=== PATIENT | female | born 1985 | race Hispanic/Latino ===

== ENCOUNTER 2018-01-27 10:06 | Inpatient (IN) | payer BC ==
[~2018-01-27] VITALS: Ht 162.6 cm; Wt 85.7 kg
[2018-01-27] MEDS ORDERED: MORPHINE SULFATE 4 MG/ML SYR IV STA (10:25)
[2018-01-27] MEDS ORDERED: SODIUM CHLORIDE 0.9% 1000ML 1,000 ML IV STA ×3 (10:25→12:27)
[2018-01-27 11:03] LABS: CLARITY,URINE SL CLOUDY (CLEAR); COLOR,URINE YELLOW (YELLOW); LEUKOCYTE ESTERASE ,URINE TRACE (NEGATIVE); NITRITE,URINE POSITIVE (NEGATIVE); PROTEIN,URINE DIPSTICK 2+ (NEGATIVE)
[2018-01-27 11:04] LABS: BILIRUBIN,URINE 2+ (NEGATIVE); KETONES,URINE 3+ (NEGATIVE); URINE UROBILINOGEN 1 mg/dL (0.2 - 1)
[2018-01-27] MEDS ORDERED: PIPER-TAZ 3.375 GM 50 ML IV STA (11:07)
[2018-01-27] MEDS ORDERED: MORPHINE SULFATE 2 MG/ML SYR ONE (11:12)
[2018-01-27] MEDS ORDERED: ACETAMINOPHEN 325 MG TAB PO ONE (11:15)
[2018-01-27] MEDS ORDERED: ONDANSETRON HCL 4 MG ORAL DISINTEGRATING TAB PO ONE (11:15)
[2018-01-27 11:18] LABS: BACTERIA,URINE FEW /HPF; EPITHELIAL CELLS,URINE RARE /LPF
[2018-01-27 11:34] LABS: BASOPHILS # (AUTO) 0.1 (0.0-0.1); BASOPHILS % 0.3 % (0.0-1.0); HEMATOCRIT 38.9 % (34.2-44.1); HEMOGLOBIN 13.8 g/dL (12.0-16.0); LYMPHOCYTES # (AUTO) 1.5 (1.0-3.2); LYMPHOCYTES % 6.3 % (18.0-39.1); MEAN CORPUSCULAR HEMOGLOBIN 29.4 pg (28-32); MEAN CORPUSCULAR HGB CONC 35.5 g/dL (31-35); MEAN CORPUSCULAR VOLUME 82.8 fL (81-99); MONOCYTES # (AUTO) 1.3 (0.2-0.8); MONOCYTES % 5.8 % (4.4-11.3); NEUTROPHILS # (AUTO) 20.4 (2.1-6.9); NEUTROPHILS % 87.2 % (38.7-80.0); PLATELET COUNT 265 x10e3/uL (140-360); RED CELL DISTRIBUTION WIDTH 11.8 % (11.7-14.4)
[2018-01-27 11:57] LABS: ALANINE AMINOTRANSFERASE 25 IU/L (0-55); ALBUMIN 3.5 g/dL (3.5-5.0); ALBUMIN/GLOBULIN RATIO 0.7 (0.8-2.0); ALKALINE PHOSPHATASE 114 IU/L (40-150); AMYLASE 33 U/L (25-125); BLOOD UREA NITROGEN 7 mg/dL (7-26); BUN/CREATININE RATIO 9 (6-25); CALCIUM 9.7 mg/dL (8.4-10.2); CARBON DIOXIDE 19 mmol/L (22-29); CHLORIDE 104 mmol/L (98-107); CREATININE, SERUM 0.75 mg/dL (0.57-1.11); EST GLOMERULAR FILTRATION RATE > 60 ML/MIN (60-); GLUCOSE 124 mg/dL (74-118); LIPASE 18 U/L (8-78); SODIUM 136 mmol/L (136-145)
[2018-01-27 12:05] LABS: LYMPHOCYTES % (MANUAL) 4 % (19-48); MONOCYTES % (MANUAL) 4 % (3.4-9.0); NEUTROPHILS % (MANUAL) 92 % (40-74); PLATELET ESTIMATE ADEQUATE; PLATELET MORPHOLOGY COMMENT NORMAL; RBC MORPHOLOGY COMMENT NORMAL
[2018-01-27] MEDS ORDERED: PROMETHAZINE HCL (IM) 25 MG/ML VIAL IM PRN (12:15)
[2018-01-27] MEDS ORDERED: MORPHINE SULFATE 2 MG/ML SYR IV PRN (12:15)
[2018-01-27 13:30] VITALS: BP 104/67
[2018-01-27 13:51] VITALS: BP 104/67
[2018-01-27] MEDS ORDERED: PIPER-TAZ 3.375 GM 50 ML IV SCH (14:00)
--- NOTE | 2018-01-27 14:13 | Diagnostic Imaging Report ---
EXAM: CT Abdomen and Pelvis WITH contrast INDICATION: Abdominal pain and tenderness, evaluate for pyelonephritis COMPARISON: None. TECHNIQUE: Abdomen and pelvis were scanned utilizing a multidetector helical scanner from the lung base to the pubic symphysis after administration of IV contrast. Coronal and sagittal reformations were obtained. Routine protocol was performed. Scan was performed when during portal venous phase. IV CONTRAST: 100 mL of Isovue 370 ORAL CONTRAST: Water RADIATION DOSE: Total DLP: 621 mGy*cm Estimated effective dose: (DLP x 0.015 x size factor) mSv COMPLICATIONS: None FINDINGS: LINES and TUBES: None. LOWER THORAX: Unremarkable HEPATOBILIARY: No focal hepatic lesions. No biliary ductal dilation. GALLBLADDER: No radio-opaque stones or sludge. No wall thickening. SPLEEN: No splenomegaly. PANCREAS: No focal masses or ductal dilatation. ADRENALS: No adrenal nodules KIDNEYS/URETERS: Diffuse areas of hypoperfusion throughout the right kidney with associated mild perinephric fat stranding. Double right calyceal system. The upper pole ureteral moiety is diffusely dilated and ends ectopically in the urinary bladder within the posterior wall with associated ureterocele. The lower ureter is nomal in caliber and ends in the expected region of the urinary bladder. No cystic or solid mass lesions. No stones. GI TRACT: No abnormal distention, wall thickening, or evidence of bowel obstruction. Appendix is normal. PELVIC ORGANS/BLADDER: Unremarkable. LYMPH NODES: No lymphadenopathy. VESSELS: Unremarkable. Incidental 3 left renal arteries. The 2 accessory renal arteries supply the occluded inferior pole of the left kidney. PERITONEUM / RETROPERITONEUM: No free air or fluid. BONES: Unremarkable. SOFT TISSUES: Unremarkable. IMPRESSION: 1. Right pyelonephritis. 2. 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 Inferior orthotopic right ureter appears unremarkable without calcified stones. Signed by: Dr. Terrie Ascencio M.D. on 01/27/2018 2:10 PM
[2018-01-27] MEDS: SODIUM CHLORIDE 0.9% 1000ML 1,000 ML IV SCH ×2 (14:15→20:34)
[2018-01-27] MEDS: ACETAMINOPHEN 325 MG TAB PO PRN ×2 (15:38→20:25)
[2018-01-27 16:10] VITALS: BP_SYST 123
[2018-01-27] MEDS ORDERED: SODIUM CHLORIDE 0.9% 50ML 50 ML ONE (17:20)
[2018-01-27] MEDS ORDERED: IOPAMIDOL 370 MG/ML 200 ML INFUS..BTL INJ ONE (17:20)
[2018-01-27 18:04] VITALS: BP 123/67
[2018-01-27 20:00] VITALS: BP 141/71
[2018-01-27] MEDS: PIPER-TAZ 3.375 GM 50 ML IV SCH (20:34)
[2018-01-28] VITALS (7 sets, daily range): BP systolic 108–136; BP diastolic 60–79
[2018-01-28] MEDS: PIPER-TAZ 3.375 GM 50 ML IV SCH ×3 (04:30→20:15)
[2018-01-28] MEDS: SODIUM CHLORIDE 0.9% 1000ML 1,000 ML IV SCH ×3 (04:30→20:15)
[2018-01-28 06:23] LABS: BASOPHILS # (AUTO) 0.1 (0.0-0.1); BASOPHILS % 0.3 % (0.0-1.0); HEMATOCRIT 34.3 % (34.2-44.1); LYMPHOCYTES # (AUTO) 2.5 (1.0-3.2); MEAN CORPUSCULAR HEMOGLOBIN 29.6 pg (28-32); MEAN CORPUSCULAR VOLUME 84.5 fL (81-99); MONOCYTES # (AUTO) 1.7 (0.2-0.8); MONOCYTES % 9.1 % (4.4-11.3); NEUTROPHILS # (AUTO) 13.7 (2.1-6.9); NEUTROPHILS % 75.6 % (38.7-80.0); PLATELET COUNT 238 x10e3/uL (140-360); RED BLOOD COUNT 4.06 x10e6/uL (3.6-5.1); RED CELL DISTRIBUTION WIDTH 11.9 % (11.7-14.4)
[2018-01-28 06:44] LABS: ALANINE AMINOTRANSFERASE 22 IU/L (0-55); ALBUMIN 2.8 g/dL (3.5-5.0); ALBUMIN/GLOBULIN RATIO 0.7 (0.8-2.0); ALKALINE PHOSPHATASE 100 IU/L (40-150); ANION GAP 11.3 mmol/L (8-16); BLOOD UREA NITROGEN 6 mg/dL (7-26); BUN/CREATININE RATIO 9 (6-25); CALCIUM 8.8 mg/dL (8.4-10.2); CARBON DIOXIDE 19 mmol/L (22-29); CHLORIDE 109 mmol/L (98-107); CREATININE, SERUM 0.68 mg/dL (0.57-1.11); EST GLOMERULAR FILTRATION RATE > 60 ML/MIN (60-); GLUCOSE 137 mg/dL (74-118); POTASSIUM 3.3 mmol/L (3.5-5.1); SODIUM 136 mmol/L (136-145)
[2018-01-28] MEDS: ACETAMINOPHEN 325 MG TAB PO PRN ×3 (08:57→20:13)
[2018-01-28] MEDS ORDERED: POTASSIUM CHLORIDE 10 MEQ TABCR PO ONE (10:15)
[2018-01-28] MEDS ORDERED: ONDANSETRON HCL INJ 2 MG/ML VIAL IV PRN (10:15)
[2018-01-28] MEDS ORDERED: KETOROLAC TROMETHAMINE 30 MG/ML VIAL IV PRN (10:15)
[2018-01-28] MEDS ORDERED: POTASSIUM CHLORIDE 20 MEQ TAB CR PO ONE (10:15)
[2018-01-28] MEDS ORDERED: ONDANSETRON HCL 4 MG ORAL DISINTEGRATING TAB PO PRN (10:15)
--- NOTE | 2018-01-28 21:52 | Consultation ---
DATE OF CONSULTATION: January 28, 2018 UROLOGY CONSULTATION REASON FOR CONSULTATION: Pyelonephritis. HISTORY OF PRESENT ILLNESS: Sasha Ortiz is a 32-year-old woman who had fever, nausea, and vomiting. The patient had left-sided flank pains and reported to the emergency room where she underwent a contrast only CT of the abdomen and pelvis and was found to have urological findings and was subsequently admitted. Patient reports she had a 101 fever at the urgent care prior to coming to this emergency room. In the emergency room yesterday, the patient had 103.2 fever. The patient had laboratory studies done and was subsequently admitted. The patient reports having stress-type urinary incontinence, but never having urge-type urinary incontinence. Patient denies previous hematuria, dysuria, urinary tract infections, or urolithiasis. PAST MEDICAL AND SURGICAL HISTORY: None. ALLERGIES: NONE KNOWN. CURRENT MEDICATIONS: Please refer to the MAR. Patient is normally on no medications. FAMILY HISTORY: Significant for heart disease and diabetes mellitus in the patient's father. SOCIAL HISTORY: The patient denies smoking, ethanol, and drug use. 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 REVIEW OF SYSTEMS: As consistent with above history of present illness and past medical history, otherwise negative for all other systems. PHYSICAL EXAMINATION: GENERAL: Healthy-appearing 32-year-old woman, lying in bed, in no apparent distress. VITAL SIGNS: Her temperature maximum in the emergency room yesterday was 103.2 and her vital signs have been stable. ABDOMEN: Soft, nondistended. It is tender in the left flank with left-sided costovertebral angle tenderness. Kidneys are not palpable without hepatosplenomegaly. No obvious evidence of hernia. For the remaining physical examination and review of systems, please refer to the admission history and physical on chart as well as the ER T-sheet. LABORATORY STUDIES: White blood cell count yesterday was 23,300, today it is 18,160; hemoglobin is normal at 12; platelets are normal at 238,000. Patient's potassium is slightly low at 3.3, creatinine is normal at 0.68. Urinalysis significant for nitrite-positive urine with 6 to 10 RBCs, 6 to 10 WBCs, rare epithelial cells, and few bacteria. Urine test is negative. CT scan of the abdomen and pelvis was reviewed. It revealed hypoperfusion areas of the right kidney consistent with right pyelonephritis. There is a duplicated collecting system on the left with the upper pole moiety dilated all the way down to the bladder where there appears to be a ureterocele. Of note is that there are 3 left renal arteries and the 2 accessory renal arteries supply the occluded inferior pole of the left kidney. ASSESSMENT: 1. Fevers. 2. Nausea, vomiting. 3. Right renal colic. 4. Right pyelonephritis. 5. Stress-type urinary incontinence. 6. Complicated urinary tract infection. 7. Right ureteral duplication. 8. Right hydroureteronephrosis. 9. Right ureterocele. 10. Hypokalemia. 11. Leukocytosis. PLAN: 1. I will order catheterize urine culture and sensitivity. 2. The lab needs to completely workup the urine culture and sensitivity that is currently pending that they are listing as contaminant due to the fact that it seemed to be a good clean catch urinary specimen. 3. I at length discussed with the patient and family at the bedside the options. The plan will be to attempt to cool the patient's pyelonephritis off prior to going to the operating room for cystoscopy and retrograde pyelograms. At that point in time, incision of the ureterocele may be performed. This could potentially result in reflux. I also informed the patient that she may be down the road looking at a right upper pole partial nephrectomy and at that point in time, a ureteral reimplantation may be warranted as well. Thank you very much for involving us in the care of your patient. We will be happy to follow her along with you as well as an outpatient Job#: [id number]
[2018-01-29] VITALS (7 sets, daily range): BP systolic 127–146; BP diastolic 71–86
[2018-01-29] MEDS: PIPER-TAZ 3.375 GM 50 ML IV SCH ×3 (03:46→20:04)
[2018-01-29] MEDS: ACETAMINOPHEN 325 MG TAB PO PRN ×2 (04:02→14:45)
[2018-01-29] MEDS: SODIUM CHLORIDE 0.9% 1000ML 1,000 ML IV SCH ×3 (04:51→20:04)
[2018-01-29 07:05] LABS: BASOPHILS % 0.3 % (0.0-1.0); EOSINOPHILS % 0.3 % (0.0-6.0); HEMOGLOBIN 12.8 g/dL (12.0-16.0); LYMPHOCYTES # (AUTO) 2.5 (1.0-3.2); LYMPHOCYTES % 21.6 % (18.0-39.1); MEAN CORPUSCULAR HEMOGLOBIN 29.1 pg (28-32); MEAN CORPUSCULAR HGB CONC 34.6 g/dL (31-35); MEAN CORPUSCULAR VOLUME 84.1 fL (81-99); MONOCYTES # (AUTO) 1.1 (0.2-0.8); MONOCYTES % 9.3 % (4.4-11.3); NEUTROPHILS # (AUTO) 7.9 (2.1-6.9); NEUTROPHILS % 68.1 % (38.7-80.0); PLATELET COUNT 254 x10e3/uL (140-360); RED CELL DISTRIBUTION WIDTH 11.9 % (11.7-14.4)
[2018-01-29 07:28] LABS: ANION GAP 14.4 mmol/L (8-16); BLOOD UREA NITROGEN 5 mg/dL (7-26); BUN/CREATININE RATIO 8 (6-25); CARBON DIOXIDE 19 mmol/L (22-29); CHLORIDE 109 mmol/L (98-107); CREATININE, SERUM 0.61 mg/dL (0.57-1.11); EST GLOMERULAR FILTRATION RATE > 60 ML/MIN (60-); GLUCOSE 96 mg/dL (74-118); POTASSIUM 3.4 mmol/L (3.5-5.1); SODIUM 139 mmol/L (136-145)
[2018-01-30] VITALS (7 sets, daily range): BP systolic 126–141; BP diastolic 77–89
[2018-01-30] MEDS: ACETAMINOPHEN 325 MG TAB PO PRN (01:48)
[2018-01-30] MEDS: PIPER-TAZ 3.375 GM 50 ML IV SCH ×3 (04:09→20:38)
[2018-01-30] MEDS: SODIUM CHLORIDE 0.9% 1000ML 1,000 ML IV SCH ×3 (05:23→20:39)
[2018-01-30] MEDS ORDERED: GENTAMICIN 120MG/NS 100ML 100 ML IV ONE (10:15)
[2018-01-30] MEDS ORDERED: TEMAZEPAM 15 MG CAP PO PRN (17:30)
[2018-01-30] MEDS ORDERED: ALPRAZOLAM 0.5 MG TAB PO PRN (17:30)
[2018-01-31] VITALS: BP 125/71
[2018-01-31 04:00] VITALS: BP 134/77
[2018-01-31] MEDS: PIPER-TAZ 3.375 GM 50 ML IV SCH ×2 (04:00→13:06)
[2018-01-31] MEDS: SODIUM CHLORIDE 0.9% 1000ML 1,000 ML IV SCH (04:15)
[2018-01-31 07:15] VITALS: BP 125/79
[2018-01-31 07:42] LABS: BASOPHILS # (AUTO) 0.1 (0.0-0.1); BASOPHILS % 0.6 % (0.0-1.0); EOSINOPHILS # (AUTO) 0.1 (0.0-0.4); HEMATOCRIT 37.8 % (34.2-44.1); HEMOGLOBIN 13.1 g/dL (12.0-16.0); LYMPHOCYTES # (AUTO) 3.2 (1.0-3.2); MEAN CORPUSCULAR HEMOGLOBIN 28.8 pg (28-32); MEAN CORPUSCULAR HGB CONC 34.7 g/dL (31-35); MEAN CORPUSCULAR VOLUME 83.1 fL (81-99); MONOCYTES # (AUTO) 0.8 (0.2-0.8); MONOCYTES % 9.6 % (4.4-11.3); NEUTROPHILS # (AUTO) 4.2 (2.1-6.9); NEUTROPHILS % 50.2 % (38.7-80.0); PLATELET COUNT 379 x10e3/uL (140-360); RED BLOOD COUNT 4.55 x10e6/uL (3.6-5.1); RED CELL DISTRIBUTION WIDTH 11.9 % (11.7-14.4)
[2018-01-31 08:01] LABS: ANION GAP 14.3 mmol/L (8-16); BLOOD UREA NITROGEN 5 mg/dL (7-26); BUN/CREATININE RATIO 8 (6-25); CALCIUM 9.5 mg/dL (8.4-10.2); CARBON DIOXIDE 21 mmol/L (22-29); CHLORIDE 110 mmol/L (98-107); CREATININE, SERUM 0.63 mg/dL (0.57-1.11); EST GLOMERULAR FILTRATION RATE > 60 ML/MIN (60-); GLUCOSE 100 mg/dL (74-118); POTASSIUM 3.3 mmol/L (3.5-5.1); SODIUM 142 mmol/L (136-145)
[2018-01-31 09:07] VITALS: BP 125/79
[2018-01-31] MEDS ORDERED: BELLADONNA/OPIUM 60 MG SUPP PR ONE (10:37)
[2018-01-31] MEDS ORDERED: IOPAMIDOL 610MG/1ML 300 MG/ML VIAL IV ONE (10:37)
[2018-01-31 11:07] LABS: EOSINOPHILS % (MANUAL) 3 % (0-7); LYMPHOCYTES % (MANUAL) 35 % (19-48); MONOCYTES % (MANUAL) 6 % (3.4-9.0); NEUTROPHILS % (MANUAL) 50 % (40-74); POIKILOCYTOSIS SLIGHT
[2018-01-31 11:08] LABS: ANISOCYTOSIS SLIGHT; PLATELET ESTIMATE ADEQUATE; PLATELET MORPHOLOGY COMMENT NORMAL; RBC MORPHOLOGY COMMENT NORMAL
[2018-01-31] MEDS: ACETAMINOPHEN 325 MG TAB PO PRN (13:43)
[2018-01-31 16:00] VITALS: BP 121/84
[2018-01-31] MEDS ORDERED: TYLENOL WITH C1 EACH PO (17:30)
[2018-01-31] MEDS ORDERED: DITROPAN XL5 MG PO (17:31)
[2018-01-31] MEDS ORDERED: PYRIDIUM100 MG PO ×2 (17:32→17:34)
[2018-01-31] MEDS ORDERED: CIPRO500 MG PO (17:34)
[2018-01-31] MEDS ORDERED: FENTANYL CITRATE/PF 100MCG/2 ML INJ ONE (17:58)
[2018-01-31] MEDS ORDERED: MIDAZOLAM HCL 2 MG/2 ML VIAL ONE (17:58)
[2018-01-31] MEDS ORDERED: ONDANSETRON HCL INJ 2 MG/ML VIAL ONE (18:44)
[2018-01-31] MEDS ORDERED: PHENYLEPHRINE HCL 1% 10 MG/ML VIAL ONE (18:44)
[2018-01-31] MEDS ORDERED: LIDOCAINE HCL 2% LOCAL INJ 5 ML SDV VIAL INJ ONE (18:44)
[2018-01-31] MEDS ORDERED: SEVOFLURANE INHAL SOLN 250 ML PEN BTL ONE (18:44)
[2018-01-31] MEDS ORDERED: DEXAMETHASONE SOD PHOS INJ 4 MG/ML VIAL ONE (18:44)
[2018-01-31] MEDS ORDERED: PROPOFOL IV EMULSION 10 MG/ML 20 ML VIAL ONE (18:44)
== END 2018-01-31 18:22 | disposition home or self-care (01) | DRG 854 ==
LOC: ER 10:06 → ERHOLD 12:51 → IMCU 12:52 → OBSVTOIN 01-28 10:08 → MED/SURG3 01-28 17:12
PROVIDERS: ADMIT Internal Medicine; ATTEND Internal Medicine
PROC: 0T768ZZ Dilation of Right Ureter, Via Natural or Artificial Opening Endoscopic (ICD-10-PCS; 2018-01-31)
PROC: BT141ZZ Fluoroscopy of Kidneys, Ureters and Bladder using Low Osmolar Contrast (ICD-10-PCS; 2018-01-31)
PROC: 0TB68ZX Excision of Right Ureter, Via Natural or Artificial Opening Endoscopic, Diagnostic (ICD-10-PCS; principal; 2018-01-31 10:30)
DX: A41.9 Sepsis, unspecified organism (principal); N12 Tubulo-interstitial nephritis, not specified as acute or chronic; N13.6 Pyonephrosis; N39.46 Mixed incontinence; E87.6 Hypokalemia; Q62.5 Duplication of ureter; N28.89 Other specified disorders of kidney and ureter; B96.20 Unspecified Escherichia coli [E. coli] as the cause of diseases classified elsewhere
CPT/HCPCS: 36415; 74177; 74420; 80048; 80053; 81001; 81025; 82150; 82948; 83605; 83690; 85025; 87040; 87086; 87186; 96361; 99284; G0378; J1100; J1580; J1885; J2001; J2250; J2270; J2370; J2405; J2543; J7030; Q9967

== ENCOUNTER → 2018-03-02 | Outpatient (CLI) | payer BC ==
[~2018-03-02] MED LIST: CIPRO500 MG PO; DITROPAN XL5 MG PO; PYRIDIUM100 MG PO; TYLENOL WITH C1 EACH PO
--- NOTE | 2018-03-04 22:46 | Diagnostic Imaging Report ---
Renal Scan Reason for exam: 32 F with history of duplicated ureters and recurrent UTIs. Radiopharmaceutical: Tc-99m MAG3 10 mCi Report: After administration of the radiopharmaceutical, dynamic images of the kidneys were obtained through 40 minutes. LEFT KIDNEY: Perfusion is prompt. The left kidney has a normal reniform shape. Extraction of tracer from the blood pool is normal. Clearance of tracer from the renal parenchyma is prompt. The pelvicaliceal system is not dilated. There is no significant increase in pooling of tracer within the pelvicaliceal system. Drainage of tracer from the pelvicaliceal system is normal. No stasis of tracer is seen in the left ureter. RIGHT KIDNEY: Perfusion is prompt. The kidney has a normal reniform shape. A small cortical scar is seen in the upper pole. Extraction of tracer from the blood pool is normal. Clearance of tracer from the renal parenchyma is prompt. The pelvicaliceal system is not dilated. There is no significant increase in pooling of tracer within the pelvicaliceal system. Drainage of tracer from the pelvicaliceal study is normal. No stasis of tracer is seen in the right ureter. DIFFERENTIAL RENAL FUNCTION: Left kidney 56% and right kidney 44% (normal 57-43%). Impression: 1. The left kidney has generally normal function. No hydronephrosis. No evidence of obstruction. 2. The right kidney has generally normal function. Small cortical scar noted in the upper pole. No hydronephrosis. No evidence of obstruction. 3. The differential renal function is preserved. The right kidney is slightly smaller than the left kidney. Signed by: Dr. Kesha Malloy M.D. on 03/04/2018 10:42 PM
== END ==
LOC: NM 15:59
PROVIDERS: ATTEND Urology
DX: N13.30 Unspecified hydronephrosis (principal)
CPT/HCPCS: 78707; 81025; A9562

== ENCOUNTER → 2018-06-29 | Outpatient (CLI) | payer BC ==
[~2018-06-29] MED LIST changes: +FUROSEMIDE INJ 10 MG/ML 4 ML VIAL ONE
--- NOTE | 2018-07-02 11:37 | Diagnostic Imaging Report ---
Renal Scan with Lasix [place] Clinical information: Congenital duplication of the right ureter. Right ureteral stent removed in 02/2018. Comparison: Renal scan with Lasix 03/02/2018 Technique: Following intravenous administration of 10 mCi of Tc-99m MAG3, dynamic images of the kidneys in the posterior projection were obtained through 40 minutes. Lasix 40 mg was administered intravenously at 10 minutes post injection of the tracer. Report: LEFT KIDNEY: Perfusion is prompt. The left kidney has a normal reniform shape. Extraction of tracer from the blood pool is normal. Clearance of tracer from the renal parenchyma is prompt. The pelvicaliceal system is not dilated. There is no significant increase in pooling of tracer within the pelvicaliceal system. Drainage of tracer from the pelvicaliceal system is normal. No stasis of tracer is seen in the left ureter. RIGHT KIDNEY: Perfusion is prompt. The kidney has a normal reniform shape although is smaller than the left kidney. A small cortical scar is seen in the upper pole. Extraction of tracer from the blood pool is normal. Clearance of tracer from the renal parenchyma is prompt. The pelvicaliceal system is not dilated. There is no significant increase in pooling of tracer within the pelvicaliceal system. Drainage of tracer from the pelvicaliceal study is normal. No stasis of tracer is seen in the right ureter. Differential renal function: The left kidney contributes 57% of total renal function and the right kidney contributes 43% (normal 43-57%), previously left 56% and right 44%. Impression: 1. The function of the left kidney is generally normal. No hydronephrosis is present. No physiologically significant obstruction of the renal collecting system is present. The kidney is unchanged in appearance and drainage pattern and the differential renal function is unchanged compared to the prior renal scan of 03/02/2018. 2. The function of the right kidney is generally normal. Small scar is noted in the upper pole and the kidney is smaller than the left kidney as reflected in the differential renal function of 43%. No hydronephrosis is present. No physiologically significant obstruction of the renal collecting system is present. The kidney is unchanged in appearance and drainage pattern and the differential renal function is unchanged compared to the prior renal scan of 03/02/2018. Signed by: Dr. Kesha Malloy M.D. on 07/02/2018 11:33 AM
== END ==
LOC: NM 16:05
PROVIDERS: ATTEND Urology
DX: Q62.8 Other congenital malformations of ureter (principal); N13.30 Unspecified hydronephrosis
CPT/HCPCS: 78708; 81025; A9562; J1940